=== PATIENT | female | born 2000 | race Caucasian/White ===

== ENCOUNTER 2019-09-09 08:58 | Emergency (ER) | payer BC ==
[~2019-09-09] VITALS: Ht 172.7 cm; Wt 84.3 kg
--- NOTE | 2019-09-09 09:32 | NUR ---
PT MOVED TO ROOM
--- NOTE | 2019-09-09 09:54 | NUR ---
pt c/o sob and cough x1.5 days. has hx asthma. took alb neb at 0800. lungcs ctab. ssome sore throat r/t coughing. denies fevers but c/o cold sweats/chills/hot flashes. strep/flu swab pending. vss call [facility]. as
--- NOTE | 2019-09-09 09:58 | NUR ---
pt to xr , as
[2019-09-09] MEDS ORDERED: ONDANSETRON ODT 4 MG PO ONE (10:00)
[2019-09-09] MEDS ORDERED: ONDANSETRON ODT 4 MG ONE (10:36)
--- NOTE | 2019-09-09 10:37 | NUR ---
cxr clear swabs pending. NAD. as
[2019-09-09 10:39] LABS: RAPID INFLUENZA A POSITIVE (Negative); RAPID INFLUENZA B Negative (Negative)
--- NOTE | 2019-09-09 10:45 | NUR ---
flu a + placed on iso. as
[2019-09-09 11:22] VITALS: BP 137/72
== END 2019-09-09 11:27 | disposition home or self-care (01) ==
LOC: ED 11:20
DX: J10.1 Influenza due to other identified influenza virus with other respiratory manifestations (principal)
CPT/HCPCS: 71046; 87081; 87400; 87880; 99284; J7512; Q0162